=== PATIENT | male | born 1935 | race Caucasian/White ===

== ENCOUNTER 2020-01-08 14:41 | Outpatient (CLI) | payer MEDICARE, SELFPAY ==
--- NOTE | ~2020-01-08 | US_ITS ---
EXAMINATION: US carotid duplex BI DATE: 01/08/2020 15:17 INDICATION: Circulatory system symptoms. CVA. Dysarthria. Vertigo. TECHNIQUE: Grayscale, color Doppler, and pulsed Doppler images of the cervical carotid arteries were obtained. The degree of vessel stenosis is placed in one of the following categories: normal, <50%, 5 0-69%, >=70% but less than near-occlusion, near-occlusion, or total occlusion. Note that percent sten osis relative to normal distal artery lumen diameter is indirectly measured from velocity measurement s as described by Gerardo, et al. Radiology 2003; 229:340-346. Notes: Normal: Peak systolic velocity <125 centimeters/sec and no plaque <50%. Peak systolic velocity <125 ( EDV <40; ICA/CCA PSV ratio <2.0; used these factors only a tandem lesions or low cardiac output or co ntralateral disease) 50-69 %: PSV 125-230 (EDV 40-100; ratio 2-4) >= 70% but less than near occlusion: PSV greater than 230 (EDV > 100; ratio> 4.0) Near Occlusion: PSV that is variable; markedly narrowed lumen Occlusion: Absent flow on color/spectral Doppler and no lumen on barajas scale. COMPARISON: Ultrasound dated 12/22/2018. FINDINGS: RIGHT: The right common carotid artery (CCA) peak systolic velocity (PSV) is 53 cm/s. The right internal car otid artery (ICA) PSV is 57 cm/s. The right ICA end-diastolic velocity (EDV) is 16 cm/s. The right IC A/CCA PSV ratio is 1.1. The external carotid artery (ECA) PSV is 60 cm/s. There is antegrade flow in the right vertebral artery. LEFT: The left CCA PSV is 53 cm/s. The left ICA PSV is 56 cm/s. The left ICA EDV is 16 cm/s. The left ICA/C CA PSV ratio is 1.0. The ECA PSV is 54 cm/s. There is antegrade flow in the left vertebral artery. IMPRESSION: 1. Less than 50% stenosis in the right internal carotid artery by sonographic criteria. 2. Less than 50% stenosis in the left internal carotid artery by sonographic criteria. Reviewed, dictated and finalized at location A. IMPRESSION: 1. Less than 50% stenosis in the right internal carotid artery by sonographic brijesh cho. 2. Less than 50% stenosis in the left internal carotid artery by sonographic bonnie melton.
== END 2020-01-08 14:42 | disposition home or self-care (01) ==
PROVIDERS: PCP Family Medicine; Visit Provider Family Medicine
DX: R09.89 Other specified symptoms and signs involving the circulatory and respiratory systems (principal); I65.23 Occlusion and stenosis of bilateral carotid arteries
CPT/HCPCS: 93880

== ENCOUNTER 2020-03-19 01:27 | Outpatient (CLI) | payer MEDICARE, SELFPAY ==
[2020-03-19 19:20] LABS: SARS-CoV-2 RNA PCR Negative
== END 2020-03-19 01:28 | disposition home or self-care (01) ==
LOC: ANHCOVIDDT 01:27
PROVIDERS: PCP Family Medicine; Visit Provider Specialist
DX: Z01.812 Encounter for preprocedural laboratory examination (principal); Z20.828 Contact with and (suspected) exposure to other viral communicable diseases
CPT/HCPCS: 87635; C9803; U0003

== ENCOUNTER 2020-03-21 05:26 | Day surgery (SDC) | payer MEDICARE, SELFPAY ==
[2020-03-20 15:17] VITALS: BMI 28.5
[2020-03-21] VITALS (24 sets, daily range): BP systolic 119–179; BP diastolic 58–92; PULSE 61–78; RESP 14–20; TEMP 36.5–36.9; O2SAT 95–100; BMI 28.3
[2020-03-21 07:58] LABS: Basophils Absolute Auto 0.1 K/mm3 (0.0-0.1); Eosinophils Absolute Auto 0.2 K/mm3 (0-0.3); Eosinophils Percent Auto 3.5 % (0-4.4); Hematocrit 39.3 % (42.0-52.0); Hemoglobin 13.4 g/dL (14.0-18.0); Immature Granulocyte Absolute 0.01 K/mm3 (0.00-0.031); Immature Granulocyte Percent A 0.2 % (0-0.5); Lymphocytes Absolute Auto 1.25 K/mm3 (0.9-3.2); Lymphocytes Percent Auto 24.3 % (18.3-44.2); Mean Corpuscular HGB Conc 34.1 g/dl (32-36); Mean Corpuscular Hemoglobin 33.8 pg (26-34); Mean Corpuscular Volume 99.2 fl (80-100); Mean Platelet Volume 10.4 fl (7.4-10.4); Monocytes Absolute Auto 0.3 K/mm3 (0.1-0.6); Monocytes Percent Auto 6.4 % (2.6-8.5); Neutrophils Absolute Auto 3.3 K/mm3 (1.3-6.7); Neutrophils Percent Auto 64.6 % (45.5-73.1); Platelet Count Result 147 k/mm3 (150-375); Red Blood Count 3.96 M/mm3 (4.6-6.20); Red Cell Distribution Width 12.7 % (11.5-14.5); White Blood Count 5.2 K/mm3 (4.5-10.0)
[2020-03-21 08:07] LABS: INR 1.3; Prothrombin Time 16.1 Seconds (11.1-14.7)
[2020-03-21 08:08] LABS: Anion Gap 4 mmol/L (8-16); Blood Urea Nitrogen 23 mg/dL (9-20); Calcium 9.4 mg/dL (8.4-10.2); Carbon Dioxide 25 mmol/L (22-30); Chloride 109 mmol/L (98-107); Estimated CRCL calculation 39 ml/min; Estimated Glomerular Filt Rate 48; Glucose 101 mg/dL (75-110); Potassium 4.1 mmol/L (3.4-5.0); Sodium 138 mmol/L (137-145)
--- NOTE | 2020-03-21 08:48 | WPDMODSED ---
Moderate Sedation Note-Pt Data Patient Data Diagnosis: 84-year-old man with shortness of breath found to have significant aortic valve stenosis also has a diagnosis of descending thoracic aortic aneurysm Present Complaint: shortness of breath with exertion Procedure to be performed/Plan: right and left heart catheterization Allergies Allergy/AdvReac Type Severity Reaction Status Date / Time fentanyl AdvReac Unknown HALLUCINATE Verified 03/20/20 15:13 morphine AdvReac Unknown Hallucinati Verified 03/20/20 15:13 ng Home Medications Medication Instructions Recorded Confirmed Type lisinopril 10 mg tablet 10 mg PO DAILY #90 tablet 12/13/19 03/20/20 Rx lovastatin 10 mg tablet 10 mg PO DAILY #30 tablet 12/13/19 03/20/20 Rx warfarin 6 mg tablet 6 mg PO DAILY #90 tablet 12/14/19 03/20/20 Rx omeprazole 40 mg PO DAILY 03/20/20 03/20/20 History warfarin 5 mg PO DAILY 03/20/20 03/20/20 History Current Medications: Active Medications Sodium Chloride (Normal Saline Iv) 500 mls @ 100 mls/hr IV CONT .Q5H JACKI Sedation/Anesthesia: No previous sedation/anesthesia problems (including family history). [facility] Past Medical History Medical History (Updated 12/24/19 @ 11:31 by Inder Mcmillan MD) Anemia Carotid bruit CKD (chronic kidney disease), stage III Essential (primary) hypertension Hyperlipidemia Paroxysmal atrial fibrillation Social History Social History Smoking status: Former smoker Second hand tobacco smoke exposure: No Smoking end date: 03/20/20 Alcohol intake: current Living arrangements: with family Mod Sed Physical Exam Physical Exam Pre Procedural Exam: Normal: Appearance ( pleasant elderly man no apparent distress), Throat, Airway, Lungs, Heart Size, Heart Rate ( grade 3/6 high-pitched systolic murmur at the base), Heart Rhythm, Neuro Exam and Extremities Hours since solid foods: 12 Hours since liquid intake: 12 Internal Medicine - PN: Obj Da Vital Signs Vital Signs: Vital Signs - 24 hr 03/21/20 07:55 Temperature 36.5 C Pulse Rate 70 Respiratory Rate 17 Blood Pressure 178/91 H Pulse Oximetry 100 Meds/Results Medications: Active Medications Generic Name Dose Route Start Last Admin Trade Name Freq PRN Reason Stop Dose Admin Sodium Chloride 500 mls @ 100 mls/hr 03/21/20 06:10 Normal Saline Iv IV CONT .Q5H JACKI Labs CBC & Chem 7: 03/21/20 07:51 03/21/20 07:51 Labs: Laboratory Results - last 24 hr 03/21/20 03/21/20 03/21/20 07:51 07:51 07:51 WBC 5.2 RBC 3.96 L Hgb 13.4 L Hct 39.3 L MCV 99.2 MCH 33.8 MCHC 34.1 RDW 12.7 Plt Count 147 L MPV 10.4 Immature Gran % (Auto) 0.2 Neut % (Auto) 64.6 Lymph % (Auto) 24.3 [place] % (Auto) 6.4 Eos % (Auto) 3.5 Baso % (Auto) 1.0 Lymph # (Auto) 1.25 [place] # (Auto) 0.3 Eos # (Auto) 0.2 Baso # (Auto) 0.1 Abs Immat Gran (auto) 0.01 Absolute Neuts (auto) 3.3 Absolute Nucleated RBC 0.0 Nucleated RBC % 0.0 PT 16.1 H INR 1.3 Sodium 138 Potassium 4.1 Chloride 109 H Carbon Dioxide 25 Anion Gap 4 L BUN 23 H Creatinine 1.40 H Estim Creat Clear Calc 39 Estimated GFR 48 L Glucose 101 Calcium 9.4 ASA Classification/Sedation ASA Classification/Sedation ASA Class: II Emergent: No Risks: Risks, benefits and alternatives explained and patient/family accepted plan for sedation. Patient re-evaluated immediately prior to sedation.
--- NOTE | 2020-03-21 09:43 | WPDCARDPROC ---
Cardiac Cath Procedure Note Date of procedure:: 03/21/20 Performing physician:: Manjit Rabago MD Indication:: Symptomatic aortic valve stenosis paroxysmal atrial fibrillation history of descending thoracic aortic aneurysm hypertension Brief clinical history:: this is an 84-year-old man reporting symptoms of exertional dyspnea of recent onset. He has been followed in the outpatient setting with aortic valve stenosis for about 2 years. He was in the hospital recently with shortness of breath and is likely that his aortic valve disease has progressed. For complete assessment of this right and left heart catheterization was recommended for today. Procedure Procedure performed:: Right and left heart catheterization Sedation/Medication given:: Versed 1 mg case start time 9:01 a.m. case end time 9:37 a.m. sedation provided by Ana M Samuels RN, trained observer Access site:: right femoral artery/ right femoral vein Estimated blood loss:: 20-30 cc Procedure note:: patient was brought to the cardiac catheterization lab in the postabsorptive state the right femoral triangle was prepared and draped in the usual fashion. Anesthesia was provided with 1% lidocaine infiltrated locally. Using the modified Seldinger technique a 6 Swazi long sheath was placed into the right femoral artery and a 7 Swazi sheath into the right femoral vein. I then a balloon tip [place] catheter for right heart catheterization demonstrating right heart pressures and thermodilution cardiac outputs were measured. Av O2 difference was then sample. Following this the [place] catheter was removed. Following this a 5 Swazi angle pigtail catheter was placed into the aortic root through the long sheath. Simultaneous pressures were recorded from the pigtail in the side arm of the long sheath in the were demonstrated to be superimposable. Following this I used the 0.035 straight wire to probe the stenotic aortic valve and enter the left ventricle. The catheter was then flushed and simultaneous LV and aortic pressures were demonstrated, the aortic valve gradient was measured and aortic valve area was calculated. Left ventriculogram was then done in the 30 degree TRUJILLO projection and the catheters were then flushed and pullback pressures were demonstrated across the aortic valve. The pigtail catheter was then withdrawn following this I engaged inject the left coronary artery using a 5 Swazi FL4 diagnostic catheter. The right coronary was engaged and injected using a standard 5 Swazi JR4 catheter. Procedure was then terminated. The long sheath was in the cath lab nurse in changed over guidewire for a short 6 Swazi sheath the patient was taken to the holding area for recovery and sheath removal. The procedure was well tolerated there were no apparent complications in the was no evidence of a groin hematoma upon leaving the cath lab nurse. Findings:: Hemodynamics: Right atrium pressure 6 mmHg. right ventricle 56 over 3 and diastolic 9. pulmonary artery pressure 56 over 17. Pulmonary capillary wedge pressure 18. Cardiac output 4.83 liters/minute giving an index of 2.18. Central aortic pressure 190/79. Left ventricle 218/5 end-diastolic pressure 18. There is mean transvalvular gradient across the aortic valve of 28 mmHg valve area measures 0.97 cm2. the left ventricle is normal in size the inferior wall appears to be hypodynamic the remainder of the LV contracts well global ejection fraction is visually estimated to be 55% the left main coronary artery is nicely patent the LAD is a moderate caliber artery which extends down to around the apex. The proximal LAD has a severe area of atherosclerotic stenosis which is highly eccentric and is 90% in the TRUJILLO cranial projection. There is a discrete 70-80% stenosis in the midportion of the LAD distal to this. The circumflex is a moderate caliber artery which appears to be dominant to the posterior wall. The circumflex
--- NOTE | 2020-03-21 18:00 | SUR.PHASEII ---
BEDREST COMPLETE. DANGLED BEDSIDE, THEN STOOD TO SIT IN RECLINER CHAIR AT BEDSIDE. TOLERATED WELL. R. GROIN SITE C/D/I. NO BLEEDING OR HEMATOMA NOTED. DRESSING D/I TO SITE. SITE SOFT, NONTENDER. R. PEDAL PULSE PALP. DENIES PAIN. WILL MONITOR.
--- NOTE | 2020-03-21 19:25 | SUR.PHASEII ---
DRESSED AND READY FOR DISCHARGE HOME. DISCHARGE INSTRUCTIONS AND FOLLOW UP CARE REVIEWED W/ PT. AND HIS DAUGHTER, MACHELLE. BOTH OBSERVED R. GROIN SITE, PALPATED AREA TO BE FAMILIAR. DISC GIVEN FOR FOLLOW UP APPOINTMENT W/ DR. CLARK. ALL QUESTIONS ANSWERED AND VOICED UNDERSTANDING OF ALL. DISCHARGED HOME, OUT VIA WC TO DAUGHTER'S WAITING VAN WITH ALL PERSONAL BELONGINGS AND DISCHARGE PACKET, DISK. VOICES NO C/O. NO DISTRESS NOTED. R. PEDAL PULSE PALP AT SLIGHTLY WEAK 2+, UNCHANGED.
== END 2020-03-21 19:25 | disposition home or self-care (01) ==
PROVIDERS: PCP Family Medicine; Visit Provider Specialist
PROC: 4A023N8 Measurement of Cardiac Sampling and Pressure, Bilateral, Percutaneous Approach (ICD-10-PCS; CPT 93453; principal; 2020-03-21 08:30)
DX: I35.0 Nonrheumatic aortic (valve) stenosis (principal); I48.0 Paroxysmal atrial fibrillation; I27.20 Pulmonary hypertension, unspecified; I71.2 Thoracic aortic aneurysm, without rupture; R06.02 Shortness of breath; R93.1 Abnormal findings on diagnostic imaging of heart and coronary circulation; I12.9 Hypertensive chronic kidney disease with stage 1 through stage 4 chronic kidney disease, or unspecified chronic kidney disease; N18.3 Chronic kidney disease, stage 3 (moderate); E78.5 Hyperlipidemia, unspecified; D64.9 Anemia, unspecified; Z79.01 Long term (current) use of anticoagulants; Z87.891 Personal history of nicotine dependence
CPT/HCPCS: 36415; 80048; 85025; 85610; 93460; C1769; C1887; C1894; J0360; J1644; J2250; J7040